=== PATIENT | female | born 1990 ===

== ENCOUNTER 2016-11-10 13:07 | Observation (INO) | payer SELFPAY ==
[2016-11-10 13:07] VITALS: BMI 26.6
[2016-11-10 13:33] VITALS: RESP 18; TEMP 98.3; O2SAT 98
--- NOTE | 2016-11-10 13:54 | ED PDOC ---
Arrival/HPI - General Chief Complaint: Female Genitourinary Time Seen by Provider: 11/10/16 13:38 Historian: Patient - History of Present Illness Narrative History of Present Illness (Text): 11/10/16 13:48 Catia Rowe is a 26 year old, female, who presents to the emergency department complaining of vaginal bleeding which began at 12: 00 today afternoon. According to patient, she is 10 weeks , last menstrual period July, and states she had an US done at her OB's office which she believes her operations intelligence superintendent stated revealed IUP. Reports that she had constant lower abdominal pain for past few week, although not lateral, not changed in intensity or character. Patient states she passed large clots with blood prior to arrival. Patient states she was when she was 16 and had a miscarriage. Denies any fever, chills, chest pain, nausea, vomiting, or any other complaints at this time. Denies headache, denies lightheadedness, denies shortness of breath. Time/Duration: 1-3 hours Symptom Onset: Sudden Activities at Onset: Light Past Medical History - Provider Review Nursing Documentation Reviewed: Yes - Past Medical History Past Medical History: No Previous - Cardiac Hx Cardiac Disorders: No - Pulmonary Hx Respiratory Disorders: No - Neurological Hx Neurological Disorder: No - HEENT Hx HEENT Disorder: No - Renal Hx Renal Disorder: No - Endocrine/Metabolic Hx Endocrine Disorders: No - Hematological/Oncological Hx Blood Disorders: No - Integumentary Hx Dermatological Disorder: No - Musculoskeletal/Rheumatological Hx Musculoskeletal Disorders: No - Gastrointestinal Hx Gastrointestinal Disorders: No - Genitourinary/Gynecological Hx Genitourinary Disorders: No - Psychiatric Hx Depression: No Hx Emotional Abuse: No Hx Physical Abuse: No Hx Substance Use: No - Past Surgical History Past Surgical History: No Previous - Suicidal Assessment Feels Threatened In Home Enviroment: No Family/Social History - Physician Review Nursing Documentation Reviewed: Yes Family/Social History: No Known Family HX Smoking Status: Never Smoked Hx Alcohol Use: Yes Frequency of alcohol use: Socially Hx Substance Use: No Hx Substance Use Treatment: No Allergies/Home Meds Allergies/Adverse Reactions: Allergies No Known Allergies Allergy (Verified 10/27/13 21:58) Review of Systems - Review of Systems Constitutional: absent: Fatigue, Fevers Eyes: absent: Vision Changes ENT: absent: Hearing Changes Respiratory: absent: SOB, Cough, Sputum Cardiovascular: absent: Chest Pain, Calf Pain, CHAUDHRY Gastrointestinal: Abdominal Pain. absent: Diarrhea, Nausea, Vomiting Genitourinary Female: Vaginal Bleeding. absent: Hematuria, Urine Output Changes , Vaginal Discharge Musculoskeletal: absent: Back Pain Skin: absent: Rash Neurological: absent: Headache, Dizziness, Focal Weakness Hemo/Lymphatic: absent: Easy Bleeding Psychiatric: absent: Depression Physical Exam - Physical Exam Narrative Physical Exam (Text): Head: Atraumatic. Normocephalic. Eyes: PERRL. EOMI. Conjunctivae are not pale. ENT: Mucous membranes are moist and intact. Oropharynx is clear and symmetric. Neck: Supple. Full ROM. No JVD. No lymphadenopathy. Cardiovascular: Regular rate. Regular rhythm. No murmurs, rubs, or gallops. Distal pulses are 2+ and symmetric. Pulmonary/Chest: No evidence of respiratory distress. Clear to auscultation bilaterally. No wheezing, rales or rhonchi. Abdominal: Soft and non-distended. Very mild mid lower abdominal pain with palpation. No RLQ or LLQ pain. No upper quadrant pain. No rebound or guarding. Back: No CVA tenderness. No midline tenderness. Pelvic: JANA, RN research kennel supervisor. Mild vaginal bleeding. No clots noted. No adnexal tenderness. No lesions or lacerations noted. Extremities: No edema. No cyanosis. No clubbing. Full range of motion in all extremities. No calf tenderness. Skin: Skin is warm and dry. No petechiae. No purpura. Neurological: Alert, awake, and oriented. Normal speech. Motor and sensory exam intact. Psychiatric: Good eye contact. Normal interaction, affect, and behavior. Vital Signs Reviewed: Yes Vital Signs Temp Pulse Resp BP Pulse Ox 11/10/16 18:52 65 18 128/69 98 11/10/16 17:53 67 18 131/73 98 11/10/16 16:16 69 18 121/75 98 11/10/16 15:19 75 18 122/78 98 11/10/16 13:26 98.3 F 80 18 124/80 98 Temperature: Afebrile Blood Pressure: Normal Pulse: Regular Respiratory Rate: Normal Appearance: Positive for: Well-Appearing, Non-Toxic, Comfortable Pain Distress: Mild Mental Status: Positive for: Alert and Oriented X 3 Medical Decision Making ED Course and Treatment: 11/10/16 13:55 Impression: A 26 year old female who presents to the emergency department complaining of vaginal bleeding Differential Diagnosis included but are not limited to: threatened vs. miscarriage vs. IUP Plan: -- Labs -- Beta-HCG -- Urinalysis -- Transvaginal US -- Reassess and disposition Progress Notes: Patient reports one prior , with one miscarriage. She states she saw her operations intelligence superintendent "one and a half months ago" and "they said I was and they did an ultrasound which showed an early ". She reports history of lower abdominal pain, but states she has had this "since I found out I was ". On initial exam, she has a pad that has blood on it, however bleeding is noted to be minimal on initial exam. No hypotension noted. No tachycardia noted. Labs and ultrasound ordered. 11/10/16 15:27 US transvaginal FINDINGS: UTERUS: Measures 7.9 x 4.5 x 4.7 cm. Normal in size and appearance. No fibroid or other mass lesion seen. No gestational sac is identified within the endometrial cavity ENDOMETRIUM: Measures 12.9 mm in diameter. Endometrial appears mildly inhomogeneous in echotexture. CERVIX: No cervical abnormality identified. RIGHT OVARY: Measures 2.7 x 1.7 x 3.0 cm. No solid mass. Intra-ovarian arterial blood flow is been captured with no sonographic evidence to suggest torsion at this time. LEFT OVARY: Measures 2.8 x 2.3 x 2.8 cm. No solid mass. Intra-ovarian arterial blood flow is been captured with no sonographic evidence to suggest torsion at this time. FREE FLUID: No significant free fluid noted. OTHER FINDINGS: None. IMPRESSION: No gestational sac seen within the endometrial cavity with the endometrium appearing 12.9 mm thickness and somewhat inhomogeneous. This is less than the cut off for possible retained products of some conception. Nevertheless, demise is included in the differential diagnosis as well as possible early nonvisualized intrauterine gestation. An ectopic gestation is not been demonstrated but is not completely excluded either. Further clinical and sonographic follow-up are advised. Patient placed in ED observation for monitoring and serial exams to watch bleeding and symptoms. ED OBSERVATION Discharge: Yes Date of observation admission: 11/10/16 Time of observation admission: 14:00 - Observation admission statement Patient is being placed in observation because:: Monitoring of symptoms, monitoring of bleeding. Evaluation with ultrasound for bleeding in . - Goals of Observation Goals of observation are:: Serial exams, monitor vitals and bleeding. - Progress Note Progress Note: Patient on re-evaluation is noted to have improvement in bleeding, she is asking to go home. On exam, she is NOT ORTHOSTATIC. Repeat Hgb is not significantly changed, and on re-exam bleeding is controlled. is present, she understands ultrasound reading. I have discussed with her limitations of ultrasound but that presentation likely represents miscarriage. Multiple attempts made to contact her operations intelligence superintendent through her provided number. Patient states no pain, bleeding improved, no lightheadedness or dizziness and that she wishes to be discharged and follow-up on her own with her operations intelligence superintendent. No adnexal pain noted. No chest pain or sob. Blood type reviewed with patient. Patient discharged with instructions. As she has no pain, no hypotension, cv stable, bleeding now controlled, understands instructions, patient discharged. - Scribe Statement The provider has reviewed the documentation as recorded by the Shaan Lund Provider Attestation: Brooke Padilla Disposition/Present on Arrival - Present on Arrival Any Indicators Present on Arrival: No History of DVT/PE: No History of Uncontrolled Diabetes: No Urinary Catheter: No History of Decub. Ulcer: No History Surgical Site Infection Following: None - Disposition Have Diagnosis and Disposition been Completed?: Yes Diagnosis: Miscarriage, Vaginal bleeding Disposition: HOME/ ROUTINE Disposition Time: 18:40 Patient Plan: Discharge Condition: GOOD
[2016-11-10 14:13] LABS: BASO # 0.03 K/mm3 (0.0-2.0); BASO % 0.3 % (0.0-3.0); EOS # 0.1 (0.0-0.7); EOS % 0.4 % (1.5-5.0); GRAN # 8.16 (1.4-6.5); GRAN % 68.8 % (50.0-68.0); HEMOGLOBIN 14.7 gm/dL (12.0-16.0); LYMPH # 2.6 (1.2-3.4); LYMPH % 22.1 % (22.0-35.0); MEAN CELL VOLUME 77.8 fL (80.0-105.0); MEAN CORPUSCULAR HEMOGLOBIN 26.8 pg (25.0-35.0); MEAN CORPUSCULAR HGB CONC 34.4 g/dl (31.0-37.0); MEAN PLATELET VOLUME 9.4 fl (7.0-11.0); MONO % 8.4 % (1.0-6.0); PLATELET COUNT 258 10^3/uL (120.0-450.0); RBC 5.49 10^6/uL (3.5-6.1); RED CELL DISTRIBUTION WIDTH 13.2 % (11.5-14.5); WHITE BLOOD COUNT 11.9 10^3/ul (4.5-11.0)
[2016-11-10 14:24] LABS: HCG,QUALITATIVE URINE POSITIVE (NEGATIVE)
[2016-11-10 14:24] LABS: INR 0.94 (0.93-1.08); PARTIAL THROMBOPLASTIN TIME 26.2 Seconds (23.7-30.8); PROTHROMBIN TIME 10.1 Seconds (9.9-11.8)
[2016-11-10 14:26] LABS: URINE BILIRUBIN NEGATIVE (NEGATIVE); URINE BLOOD LARGE (NEGATIVE); URINE GLUCOSE (UA) NEGATIVE (NEGATIVE); URINE LEUKOCYTE ESTERASE TRACE Leu/uL (NEGATIVE); URINE NITRATE NEGATIVE (NEGATIVE); URINE PROTEIN 100 mg/dL (<30 mg/dL); URINE UROBILINOGEN 0.2 E.U./dL (<1 E.U./dL)
[2016-11-10 14:28] LABS: ALB/GLOB RATIO 1.2 (1.1-1.8); ALBUMIN 4.3 g/dL (3.0-4.8); ALT/SGPT 47 U/L (7-56); AST/SGOT 31 U/L (15-39); BLOOD UREA NITROGEN 10 mg/dL (7-21); CALCIUM 9.6 mg/dL (8.4-10.5); GFR AFRICAN-AMERICAN > 60; GFR NON-AFRICAN AMERICAN > 60
[2016-11-10 14:36] LABS: URINE APPEARANCE CLOUDY (CLEAR); URINE COLOR RED (YELLOW)
[2016-11-10 14:37] LABS: URINE BACTERIA TRACE (NEG); URINE EPITHELIAL CELLS 0 - 2 /hpf (0-5); URINE RBC TNTC /hpf (0-2); URINE WBC 0 - 2 /hpf (0-6)
--- NOTE | 2016-11-10 15:24 | US ---
HISTORY: reportedly 8 weeks COMPARISON: None available. TECHNIQUE: Transvaginal pelvic ultrasound was performed to evaluate . Patient's last menstrual period is reported 08/04/2016 suggesting 12 weeks 6 day intrauterine gestation at this time. FINDINGS: UTERUS: Measures 7.9 x 4.5 x 4.7 cm. Normal in size and appearance. No fibroid or other mass lesion seen. No gestational sac is identified within the endometrial cavity ENDOMETRIUM: Measures 12.9 mm in diameter. Endometrial appears mildly inhomogeneous in echotexture. CERVIX: No cervical abnormality identified. RIGHT OVARY: Measures 2.7 x 1.7 x 3.0 cm. No solid mass. Intra-ovarian arterial blood flow is been captured with no sonographic evidence to suggest torsion at this time. LEFT OVARY: Measures 2.8 x 2.3 x 2.8 cm. No solid mass. Intra-ovarian arterial blood flow is been captured with no sonographic evidence to suggest torsion at this time. FREE FLUID: No significant free fluid noted. OTHER FINDINGS: None. IMPRESSION: No gestational sac seen within the endometrial cavity with the endometrium appearing 12.9 mm thickness and somewhat inhomogeneous. This is less than the cut off for possible retained products of some conception. Nevertheless, demise is included in the differential diagnosis as well as possible early nonvisualized intrauterine gestation. An ectopic gestation is not been demonstrated but is not completely excluded either. Further clinical and sonographic follow-up are advised.
[2016-11-10 18:44] LABS: BASO # 0.03 K/mm3 (0.0-2.0); BASO % 0.2 % (0.0-3.0); EOS % 0.3 % (1.5-5.0); GRAN % 67.6 % (50.0-68.0); HEMOGLOBIN 13.9 gm/dL (12.0-16.0); LYMPH % 24.7 % (22.0-35.0); MEAN CELL VOLUME 77.9 fL (80.0-105.0); MEAN CORPUSCULAR HEMOGLOBIN 26.7 pg (25.0-35.0); MEAN CORPUSCULAR HGB CONC 34.3 g/dl (31.0-37.0); MEAN PLATELET VOLUME 9.8 fl (7.0-11.0); MONO # 0.9 (0.1-0.6); MONO % 7.2 % (1.0-6.0); PLATELET COUNT 255 10^3/uL (120.0-450.0); RED CELL DISTRIBUTION WIDTH 13.2 % (11.5-14.5); WHITE BLOOD COUNT 12.1 10^3/ul (4.5-11.0)
[2016-11-10 18:52] VITALS: BP 128/69; PULSE 65
== END 2016-11-10 18:51 | disposition home or self-care (01) ==
LOC: ED 13:07 → EROBSV 13:40
PROVIDERS: ADMIT Emergency Medicine; ATTEND Emergency Medicine
DX: O03.9 Complete or unspecified spontaneous abortion without complication (principal)
CPT/HCPCS: 76817; 80053; 81001; 84702; 84703; 85025; 85610; 85730; 86850; 86900; 87086; 99285; G0378

== ENCOUNTER 2018-02-17 14:45 | Emergency (ER) | payer OTHER ==
[2018-02-17 14:45] VITALS: BMI 26.6
[2018-02-17 15:40] VITALS: BP 143/86; PULSE 69; RESP 18; TEMP 98.4; O2SAT 100
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
== END 2018-02-17 18:18 | disposition home or self-care (01) ==
LOC: ED 14:45
DX: S16.1XXA Strain of muscle, fascia and tendon at neck level, initial encounter (principal); V49.9XXA Car occupant (driver) (passenger) injured in unspecified traffic accident, initial encounter; R51 Headache